=== PATIENT | male | born 1980 | race Caucasian/White ===

== ENCOUNTER 2017-04-05 16:21 | Observation (INO) | payer OTHER ==
[~2017-04-05] VITALS: Ht 180.3 cm; Wt 103.2 kg
[~2017-04-05 16:21] MED LIST: LORTA5 PO
[2017-04-05 16:28] VITALS: BP 145/91; PULSE 85; RESP 15; TEMP 98.5; O2SAT 98
[2017-04-05] MEDS ORDERED: CHOLESTEROL MED (16:34)
[2017-04-05] MEDS ORDERED: HTN MED (16:34)
[2017-04-05] MEDS ORDERED: MEDICAL MARIJUANNA (16:34)
[2017-04-05] MEDS ORDERED: ASPIRIN 81 MG CHEW TAB PO ONE (16:45)
[2017-04-05] MEDS ORDERED: SODIUM CHLORIDE 0.9% FLUSH 10 ML FLUSH IVF PRN (16:45)
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
[2017-04-05 16:56] VITALS: O2SAT 99
[2017-04-05 16:58] LABS: AUTOMATED NEUTROPHIL # 4.9 TH/MM3 (1.8-7.7); BASOPHIL % 0.5 % (0.0-2.0); EOSINOPHIL # 0.1 TH/MM3 (0-0.4); EOSINOPHIL % 1.5 % (0.0-4.0); HEMO FLAGS DIFF FINAL; LYMPH % 26.9 % (9.0-44.0); MEAN CORPUSCULAR HEMOGLOBIN 27.7 PG (27.0-34.0); MEAN CORPUSCULAR HGB CONC 32.9 % (32.0-36.0); MONO % 4.8 % (0.0-8.0); NEUT % 66.3 % (16.0-70.0); PLATELET COUNT 233 TH/MM3 (150-450); RED BLOOD COUNT 5.48 MIL/MM3 (4.50-5.90); RED CELL DISTRIBUTION WIDTH 12.5 % (11.6-17.2); WHITE BLOOD COUNT 7.4 TH/MM3 (4.0-11.0)
[2017-04-05] MEDS ORDERED: POTA10CA PO (17:01)
[2017-04-05] MEDS ORDERED: PRAV20TA2 PO (17:01)
[2017-04-05] MEDS ORDERED: HYDR25TA5 PO (17:01)
[2017-04-05 17:11] LABS: CHLORIDE 102 MEQ/L (98-107); POTASSIUM 3.2 MEQ/L (3.5-5.1); SODIUM (NA) 138 MEQ/L (136-145)
[2017-04-05 17:14] LABS: ANION GAP 9 MEQ/L (5-15); APTT (PATIENT) 33.1 SEC (24.3-30.1); BICARBONATE 26.7 MEQ/L (21.0-32.0); BLOOD UREA NITROGEN 12 MG/DL (7-18); MAGNESIUM 2.1 MG/DL (1.5-2.5); PROTHROMBIN TIME - PATIENT 10.7 SEC (9.8-11.6)
[2017-04-05 17:17] LABS: GLOMERULAR FILTRATION RATE 67 ML/MIN (>89)
--- NOTE | 2017-04-05 17:27 | RADRPT ---
EXAM DATE/TIME: 04/05/2017 16:58 [facility] COMPARISON: No previous studies available for comparison. INDICATIONS : Chest pain starting this morning MEDICAL HISTORY : None. SURGICAL HISTORY : None. ENCOUNTER: Initial ACUITY: 1 day PAIN SCORE: 8/10 LOCATION: Bilateral chest FINDINGS: A single view of the chest demonstrates the lungs to be symmetrically aerated without evidence of mas s, infiltrate or effusion. The cardiomediastinal contours are unremarkable. Osseous structures are intact. CONCLUSION: No acute cardiopulmonary process. Alex Sen MD on April 05, 2017 at 17:25 Board Certified Radiologist. This report was verified electronically.
[2017-04-05 17:33] LABS: CREATINE KINASE 121 U/L (39-308)
[2017-04-05 17:45] LABS: CKMB LESS THAN 0.5 NG/ML (0.5-3.6)
[2017-04-05] MEDS ORDERED: ACETAMINOPHEN 500 MG CPLT PO PRN (18:15)
[2017-04-05] MEDS ORDERED: SODIUM CHLORIDE 0.9% FLUSH 10 ML FLUSH IV FLUSH PRN (18:15)
[2017-04-05] MEDS ORDERED: NITROGLYCERIN 0.4 MG SL 25 TABS/BTL SL PRN (18:15)
[2017-04-05] MEDS ORDERED: ONDANSETRON HCL 4 MG/2 ML VIAL IV PUSH PRN (18:15)
--- NOTE | 2017-04-05 18:15 | HHI.HP ---
HPI Primary Care Physician [facility] Admission Diagnosis Chest pain, hyperlipidemia, hypertension. Diagnoses: Chief Complaint: Chest pain History of Present Illness 37 year old male with HTN and Fibromyalgia complaining of "months" of substernal CP worse with exertion and worse today. Pain usually happens after mowing the lawn, but today he walked up a flight of stairs and had severe 10/10 substernal nonradiating chest pressure "like lactic acid build up". He was not diaphoretic. He did not take any pain medications and notes the pain has been persistent since he came to the ER. I reviewed his EKG and there are Patient's nonspecific anterior lead ST changes without evidence of ischemia. Ptn Ekg reviewd by me ia negative for acute cardiopulmonary disease. He is recommended for the [facility] evaluation. Review of Systems Constitutional: DENIES: Diaphoretic episodes, Fatigue, Fever, Weight gain, Weight loss, Chills, Dizziness, Change in appetite, Night Sweats Endocrine: DENIES: Heat/cold intolerance, Polydipsia, Polyuria, Polyphagia Eyes: DENIES: Blurred vision, Diplopia, Eye inflammation, Eye pain, Vision loss , Photosensitivity, Double Vision Ears, nose, mouth, throat: DENIES: Tinnitus, Hearing loss, Vertigo, Nasal discharge, Oral lesions, Throat pain, Hoarseness, Ear Pain, Running Nose, Epistaxis, Sinus Pain, Toothache, Odynophagia Respiratory: DENIES: Apneas, Cough, Snoring, Wheezing, Hemoptysis, Sputum production, Shortness of breath Cardiovascular: COMPLAINS OF: Chest pain, Dyspnea on Exertion, DENIES: Palpitations, Syncope, PND, Lower Extremity Edema, Orthopnea, Claudication Gastrointestinal: DENIES: Abdominal pain, Black stools, Bloody stools, Constipation, Diarrhea, Nausea, Vomiting, Difficulty Swallowing, Anorexia Genitourinary: DENIES: Sexual dysfunction, Urinary frequency, Urinary incontinence, Urgency, Hematuria, Dysuria, Nocturia, Penile Discharge, Testicular Pain, Testicular Swelling Musculoskeletal: COMPLAINS OF: Joint pain, Muscle aches, Joint Swelling, Back pain Integumentary: DENIES: Abnormal pigmentation, Nail changes, Pruritus, Rash Hematologic/lymphatic: DENIES: Bruising, Lymphadenopathy Immunologic/allergic: COMPLAINS OF: Eczema, Urticaria Neurologic: COMPLAINS OF: Abnormal gait (walker at baseline), DENIES: Headache , Localized weakness, Paresthesias, Seizures, Speech Problems, Tremor, Poor Balance Psychiatric: DENIES: Anxiety, Confusion, Mood changes, Depression, Hallucinations, Agitation, Suicidal Ideation, Homicidal Ideation, Delusions Except as stated in HPI: all other systems reviewed are Neg Past Family Social History Past Medical History HTN Fibromyalgia DION Chronic pain Past Surgical History denies Reported Medications reviewed in the emr Allergies: Coded Allergies: No Known Allergies (Unverified , 01/11/14) Active Ordered Medications Reviewed in the EMR Family History Mom unknown, father CABG 72 y Social History no tobacco, , no etoh, no travel retired [employer] Physical Exam Vital Signs Vital Signs Date Time Temp Pulse Resp B/P (MAP) Pulse Ox O2 Delivery O2 Flow Rate FiO2 04/05/17 16:56 99 Room Air 04/05/17 16:56 99 Room Air 04/05/17 16:28 98.5 85 15 145/91 (109) 98 Physical Exam GENERAL: This is a well-nourished, well-developed patient, complaining of 4/10 substernal cp SKIN: No rashes, ecchymoses or lesions. Cool and dry. HEAD: Atraumatic. Normocephalic. No temporal or scalp tenderness. EYES: Pupils equal round and reactive. Extraocular motions intact. No scleral icterus. No injection or drainage. ENT: Nose without bleeding, purulent drainage or septal hematoma. Throat without erythema, tonsillar hypertrophy or exudate. Uvula midline. Airway patent. NECK: Trachea midline. No JVD or lymphadenopathy. Supple, nontender, no meningeal signs. CARDIOVASCULAR: Regular rate and rhythm without murmurs, gallops, or rubs. RESPIRATORY: Clear to auscultation. Breath sounds equal bilaterally. No wheezes , rales, or rhonchi. GASTROINTESTINAL: Abdomen soft, non-tender, nondistended. No hepato-splenomegaly , or palpable masses. No guarding. MUSCULOSKELETAL: Extremities without clubbing, cyanosis, or edema. No joint tenderness, effusion, or edema noted. No calf tenderness. Negative Homans sign bilaterally. NEUROLOGICAL: Awake and alert. Cranial nerves II through XII intact. Motor and sensory grossly within normal limits. Five out of 5 muscle strength in all muscle groups. Normal speech. Laboratory Laboratory Tests Test 04/05/17 16:49 White Blood Count 7.4 Red Blood Count 5.48 Hemoglobin 15.2 Hematocrit 46.0 Mean Corpuscular Volume 84.0 Mean Corpuscular Hemoglobin 27.7 Mean Corpuscular Hemoglobin Concent 32.9 Red Cell Distribution Width 12.5 Platelet Count 233 Mean Platelet Volume 9.3 Neutrophils (%) (Auto) 66.3 Lymphocytes (%) (Auto) 26.9 Monocytes (%) (Auto) 4.8 Eosinophils (%) (Auto) 1.5 Basophils (%) (Auto) 0.5 Neutrophils # (Auto) 4.9 Lymphocytes # (Auto) 2.0 Monocytes # (Auto) 0.4 Eosinophils # (Auto) 0.1 Basophils # (Auto) 0.0 CBC Comment DIFF FINAL Differential Comment Prothrombin Time 10.7 Prothromb Time International Ratio 1.0 Activated Partial Thromboplast Time 33.1 Blood Urea Nitrogen 12 Creatinine 1.20 Random Glucose 125 Calcium Level 9.0 Magnesium Level 2.1 Sodium Level 138 Potassium Level 3.2 Chloride Level 102 Carbon Dioxide Level 26.7 Anion Gap 9 Estimat Glomerular Filtration Rate 67 Total Creatine Kinase 121 Creatine Kinase MB LESS THAN 0.5 Troponin I LESS THAN 0.02 Result Diagram: 04/05/17 1649 04/05/17 1649 Imaging Last Impressions Chest X-Ray 04/05/17 1638 Signed Impressions: Service Date/Time: Wednesday, April 05, 2017 16:58 - CONCLUSION: No acute cardiopulmonary process. Alex Sen MD Assessment and Plan Problem List: (1) Chest pain ICD Code: R07.9 - Chest pain, unspecified Status: Acute Plan: Chest pain atypical but concerning given his history of HTn and Lipd disorder [facility] obsv with Nuc ST in am cotn tele, trend cardiac enzymes, symptom management (2) Fibromyalgia ICD Code: M79.7 - Fibromyalgia Plan: patient on Medical marijuana (3) Hypertension ICD Code: I10 - Essential (primary) hypertension Status: Acute Plan: COnt HCTZ (4) Sleep apnea ICD Code: G47.30 - Sleep apnea, unspecified Status: Acute Code Status full code Discussed Condition With Patient, Lakeshia Espinosa MD Apr 05, 2017 18:15
[2017-04-05 19:39] LABS: CREATINE KINASE 118 U/L (39-308)
[2017-04-05 19:51] LABS: CKMB 0.6 NG/ML (0.5-3.6)
[2017-04-05 20:00] VITALS: BP 145/104; PULSE 74; PULSE 76; RESP 20; TEMP 97.8; O2SAT 97
[2017-04-05] MEDS: FAMOTIDINE 20 MG TAB PO SCH (20:00)
[2017-04-05] MEDS: SODIUM CHLORIDE 0.9% FLUSH 10 ML FLUSH IV FLUSH SCH (20:02)
[2017-04-05 20:48] VITALS: O2SAT 99
[2017-04-05 21:52] LABS: CREATINE KINASE 109 U/L (39-308)
[2017-04-05 22:04] LABS: CKMB 0.6 NG/ML (0.5-3.6)
--- NOTE | 2017-04-05 23:20 | EKG ---
Date Performed: 04/05/2017 Time Performed: 21:21:36 PTAGE: 37 years EKG: Sinus rhythm MODERATE T-WAVE ABNORMALITY, CONSIDER ANTERIOR ISCHEMIA ABNORMAL ECG PREVIOUS TRACING : 04/05/2017 16.29 Compared to prior tracing no significant change DOCTOR: Alex Shaffer Interpretating Date/Time 04/05/2017 23:19:33
--- NOTE | 2017-04-05 23:33 | EKG ---
Date Performed: 04/05/2017 Time Performed: 16:29:47 PTAGE: 37 years EKG: Sinus rhythm NONSPECIFIC T-WAVE ABNORMALITY BORDERLINE ECG NO PREVIOUS TRACING DOCTOR: Alex Shaffer Interpretating Date/Time 04/05/2017 23:32:23
[2017-04-06] VITALS: BP 121/84; PULSE 66; RESP 20; TEMP 97.1; O2SAT 97
[2017-04-06 04:00] VITALS: BP 106/71; PULSE 69; RESP 20; TEMP 97.1; O2SAT 97
[2017-04-06 08:00] VITALS: BP 120/68; PULSE 76; RESP 16; TEMP 98.1; O2SAT 96; O2SAT 98
--- NOTE | 2017-04-06 08:29 | HHI.PR ---
Subjective Remarks Follow up for chest pain. Patient states he is feeling better. He denies any further chest pain or shortness of breath overnight. Objective Vitals Vital Signs Date Time Temp Pulse Resp B/P (MAP) Pulse Ox O2 Delivery O2 Flow Rate FiO2 04/06/17 08:00 98.1 76 16 120/68 (85) 96 04/06/17 04:00 97.1 69 20 106/71 (83) 97 04/06/17 00:00 97.1 66 20 121/84 (96) 97 04/05/17 20:48 99 Nasal Cannula 2.00 04/05/17 20:00 76 04/05/17 20:00 97.8 74 20 145/104 (118) 97 04/05/17 16:56 99 Room Air 04/05/17 16:56 99 Room Air 04/05/17 16:28 98.5 85 15 145/91 (109) 98 I/O 04/05/17 04/05/17 04/05/17 04/06/17 04/06/17 04/06/17 07:00 15:00 23:00 07:00 15:00 23:00 Intake Total 240 ml Balance 240 ml Intake Oral 240 ml # Voids 1 Result Diagram: 04/05/17 1649 04/05/17 1649 Objective Remarks GENERAL: Well-nourished, well-developed patient in no apparent distress. CARDIOVASCULAR: Regular rate and rhythm. RESPIRATORY: No accessory muscle use. Clear to auscultation. Breath sounds equal bilaterally. GASTROINTESTINAL: Abdomen soft, non-tender, nondistended. MUSCULOSKELETAL: No lower extremity edema bilaterally. NEUROLOGICAL: Awake and alert. Normal speech. PSYCHIATRIC: Appropriate mood and affect. Urinary Catheter: No Vascular Central Line Catheter: No A/P Problem List: (1) Chest pain ICD Code: R07.9 - Chest pain, unspecified Status: Acute (2) Fibromyalgia ICD Code: M79.7 - Fibromyalgia (3) Hypertension ICD Code: I10 - Essential (primary) hypertension Status: Acute (4) Sleep apnea ICD Code: G47.30 - Sleep apnea, unspecified Status: Acute Assessment and Plan Chest pain: Substernal chest pressure worse on exertion. H/o hyperlipidemia and HTN. -EKGs x 2 personally interpreted with nonspecific T wave inversion primarily in V3 through V5. -Troponin 3 less than 0.02. -Telemetry reviewed without significant events -325 mg daily aspirin -Nitro prn chest pain -Lexiscan ordered. Patient states he forgot and had crackers this morning. No caffeine in the last 12 hours. I informed patient his test will be delayed by 4 hours. Hypertension: BP wnl this morning. Continue HCTZ HLD: Continue Pravastatin. Lipid profile ordered. Fibromyalgia: Patient uses medical marijuana DVT prophylaxis: SCDs Update: Myocardial perfusion scan shows 20% redistribution in the mid anterolateral wall concerning for an area of ischemia. This is consistent with EKG changes. He additionally has fixed diminished perfusion to the apex. EF of 62%. I spoke with patient at approximately 1445 and explained results. He complains of current 2/10 pressure in the center of his chest, but denies any chest pain or shortness of breath when he has gotten up to ambulate to the bathroom. He has NO reproducible tenderness in this area. Nitroglycerin ointment ordered. I spoke with Dr. Borjas, on-call sales assistant entertainment and media, who would like the patient transferred over to the main [facility] as soon as possible for a heart catheterization today. He advises starting heparin. which has been ordered. Patient ate lunch and Dr. Borjas is aware. Made NPO at this time. Patient requested I speak with his Hellen Melendez at [phone] which I have done. Attending Statement The exam, history, and the medical decision-making described in the above note were completed with the assistance of the mid-level provider. I reviewed and agree with the findings presented. I attest that I had a [id number] encounter with the patient on the same day, and personally performed and documented my assessment and findings in the medical record. patient had a cath and was recommended for aspirin and metoprolol, Cath results in EMR. DC home activity as tolerated Diet heart healthy Medical Decision Making Impression and Plan Patient seen today in follow-up for atypical chest pain, overall chest pain appears resolved. Discharge plans pending stress test discussed with patient Jazmine Alaniz Apr 06, 2017 08:29 Lakeshia Cartagena MD Apr 06, 2017 13:03
[2017-04-06] MEDS ORDERED: PRAVASTATIN SOD 20 MG TAB PO SCH (09:00)
[2017-04-06] MEDS ORDERED: HYDROCHLOROTHIAZIDE 25 MG TAB PO SCH (09:00)
[2017-04-06] MEDS ORDERED: ASPIRIN 325 MG TAB PO SCH (09:00)
[2017-04-06] MEDS: SODIUM CHLORIDE 0.9% FLUSH 10 ML FLUSH IV FLUSH SCH (10:26)
[2017-04-06] MEDS: FAMOTIDINE 20 MG TAB PO SCH ×2 (10:27→18:49)
[2017-04-06 12:00] VITALS: BP 129/71; PULSE 84; RESP 16; TEMP 97.6; O2SAT 94
--- NOTE | 2017-04-06 14:04 | RADRPT ---
EXAM DATE/TIME: 04/06/2017 12:23 [facility] COMPARISON: No previous studies available for comparison. INDICATIONS : Substernal chest pain with dyspnea upon exertion. Abnormal EKG. DOSE: 35 mCi Tc99m Myoview at stress. 11 mCi Tc99m Myoview at rest. 0.4 mg Lexiscan STRESS SYMPTOMS: Dyspnea, tingling and chest pain. EJECTION FRACTION: 62% MEDICAL HISTORY : Hypercholesterolemia. Hypertension. SURGICAL HISTORY : Lumbar spine. ENCOUNTER: Initial ACUITY: 4 - 6 days PAIN SCALE: 7/10 LOCATION: Substernal chest TECHNIQUE: The patient underwent pharmacologic stress with infusion of prescribed dose. Continuous ECG tracing was monitored during stress. Gated SPECT imaging was performed after stress and conventional SPECT i maging was performed at rest. The examination was performed on a SPECT/CT scanner, both attenuation and non-corrected datasets were reviewed. FINDINGS: DISTRIBUTION: The maximum perfused segment at stress is in the inferior wall. PERFUSION STUDY: The pattern of perfusion at stress and shows approximately 20% redistribution in the mid anterolatera l wall. Fixed diminished perfusion to the apex. GATED STUDY: There is intact wall motion and thickening without hypokinetic or dyskinetic segments. CONCLUSION: 1. 20% redistribution in the mid anterolateral wall concerning for an area of ischemia. 2. Adequate wall motion throughout with an ejection fraction of 62% RISK CATEGORY: Intermediate (1-3% Annual Mortality Rate) Alex Sen MD on April 06, 2017 at 13:53 Board Certified Radiologist. This report was verified electronically.
[2017-04-06] MEDS ORDERED: NITROGLYCERIN 2% OINT 1 GM PACKET TOP ONE (15:00)
[2017-04-06] MEDS ORDERED: NITROGLYCERIN 2% OINT 1 GM PACKET TOP SCH ×2 (15:30→18:00)
[2017-04-06] MEDS ORDERED: HEPARIN-D5W 25,000 U/250 ML 250 ML IV PRN (15:30)
[2017-04-06] MEDS ORDERED: HEPARIN SODIUM - IV 10,000 UNITS/10 ML VIAL IV ONE (15:30)
[2017-04-06 15:42] LABS: HEMATOCRIT 46.3 % (39.0-51.0); MEAN CELL VOLUME 85.7 FL (80.0-100.0); MEAN CORPUSCULAR HEMOGLOBIN 28.4 PG (27.0-34.0); MEAN CORPUSCULAR HGB CONC 33.2 % (32.0-36.0); PLATELET COUNT 219 TH/MM3 (150-450); REVIEW FLAG FINAL; WHITE BLOOD COUNT 7.6 TH/MM3 (4.0-11.0)
[2017-04-06] MEDS ORDERED: MIDAZOLAM HCL 2 MG/2 ML VIAL ONE (16:28)
[2017-04-06] MEDS ORDERED: POTASSIUM CHLOR 20 MEQ PREMIX 100 ML ONE (16:28)
[2017-04-06] MEDS ORDERED: HEPARIN SODIUM - IV 10,000 UNITS/10 ML VIAL ONE (16:29)
[2017-04-06] MEDS ORDERED: NITROGLYCERIN INJ 5 ML ONE (16:29)
[2017-04-06] MEDS ORDERED: VERAPAMIL HCL 5 MG/2 ML VIAL ONE (16:29)
[2017-04-06] MEDS ORDERED: HEPARIN-NS/PF INJ 500 ML ONE (16:29)
[2017-04-06] MEDS ORDERED: IOHEXOL 350 MG/ML 100 ML BTL (for Cath Lab) OTHER ONE (16:30)
[2017-04-06 16:58] LABS: HDL CHOLESTEROL 68.8 MG/DL (40.0-60.0)
[2017-04-06] MEDS ORDERED: METO25TA3 PO (17:11)
--- NOTE | 2017-04-06 17:13 | CATHPROC ---
[employer] HIS Report Study Information Study Number Admission Scheduled Start Study Start [id number] Apr 05 2017 5:38PM 04/06/2017 Apr 06 2017 4:15PM Reading Service Cardiac Catheterization Admit Source Facility Department Transfer in from another acute care facility [facility] [address] - Division Plant Engineer Physician and Clinical Staff Initial Haresh Coy Service Superintendentiraida Paulino RN, Leslie Jean RN Service SuperintendentLaura Ortiz RN Other cathlab, cathlab Recorder Beth Chu,MAINFRAME SYSTEMS PROGRAMMER TECH2 Scrub HostJerad patton,RT(R) Procedures Performed Procedure Location (Site) Vessel Name Coronary Angiograms LCA Left Coronary Coronary Angiograms RCA Right Coronary L Heart Cath Wire insertion Radial (right) Radial Art. Equipment Time Associate Brand Manager Description Size Mfg Part Number Used/Scraped TRANSDUCER, TRUWAVE [id number] 16:37 HENDRICKSON CHAVEZ * Used W/STOCKCOCK *[id number] *[id number] *[id number] *[id number] 16:37 [employer] PACK, CCL CUSTOM * Used *[id number] 16:37 [employer] SUPPORT, ARTERIAL ADULT 25817 *[id number] Used [id number] 16:37 [employer] PACER PEN, SKIN DUAL W/ RULER * Used *[id number] BAND, RADIAL COMPRESSION TR [id number] 17:04 [employer] 24CM Used SHORT 24 *[id number] BAND, RADIAL COMPRESSION TR [id number] 17:05 [employer] 24CM Used SHORT 24 *[id number] SHEATH, FR6 RADIAL PRELUDE 16:37 [employer]Rise FR 6 [id number] Used EASE 11CM [id number] 16:37 [employer] WIRE, EXCHANGE 260CM 3MMJ 260CM Used *[id number] 16:37 [employer] OMNIPAQUE, 350 MG, 150ML 150ML [id number] Used [id number] 16:37 [employer] BLANKET,WARM AIR CCL * Used *[id number] History: Allergies Allergy Reaction No Known Allergies History: Risk Factors Family History of Hypertension Dyslipidemia Previous NH Previous Heart Failure Premature CAD Yes Yes Yes No No Prior Valve Prior PCI Prior CABG Surgery No No No Cerebrovascular Peripheral Artery Chronic Lung On Dialysis Diabetes Disease Disease Disease No No No No No History: Stress Tests Stress or Imaging Studies Performed Yes Standard Exercise Stress Test No Stress Echo No Stress Test SPECT No Stress Test CMR Stress Test CMR Result Stress Test CMR Ischemia Risk/Extent Yes Positive High Cardiac CTA Coronary Calcium Score No No History: Other Disease Selection Items HTN History: Other Current Smoker No Labs Hgb (g/dl) Hct (%) WBC (l/cumm) Platelets (thousands) 11.60-17.00 35.00-51.00 4.00-11.00 150.00-450.00 15.2 46 7.4 233 Glucose (mg/dl) BUN (mg/dl) Creatinine (mg/dl) BUN:Creatinine (1:x) 74.00-106.00 7.00-18.00 0.50-1.30 10.00-20.00 125 12 1.2 10 Na (meq/l) K (meq/l) 136.00-145.00 3.50-5.10 138 3.2 INR (PTT:PT) 0.90-1.10 1 Troponin I (ng/ml) CPK (u/l) CPK-MB (ng/ML) 0.02-0.05 26.00-308.00 0.50-3.60 0.02 109 0.6 Medication Medication Total Dose (Bolus/Oral) Medication Total Dosage/Unit 1% XYLOCAINE 10 mL FENTANYL 50 mcg OXYGEN 2 l/min VERSED 2 mg Medications (Bolus/Oral) Medication Time Given Dosage/Unit Administered By Reason OXYGEN 04/06/2017 4:39:26 PM 2 l/min Leslie Diallo 2 l/min OXYGEN given in lab by Leslie Diallo, ALIX via Nasal. Ordered by Haresh Borjas. VERSED 04/06/2017 4:48:16 PM 2 mg Laura Escalante 2 mg VERSED given in lab by Laura Escalante, RN in Right Antecubital via Peripheral IV. Ordered by Haresh Martinez. FENTANYL 04/06/2017 4:49:50 PM 50 mcg Laura Escalante 50 mcg FENTANYL given in lab by Laura Escalante, RN in Right Antecubital via Peripheral IV. Ordered b Haresh Stallings. 1% XYLOCAINE 04/06/2017 4:51:29 PM 10 mL Haresh Borjas 10 mL 1% XYLOCAINE given in lab by Haresh Borjas in Right Radial via Subcutaneous. Ordered by Haresh Borjas. Medication (Drip) Medication Time Given Dosage/Unit Concentration/Unit Diluent (ml) Solution IV Solutions 04/06/2017 4:35:43 PM 0 mL (IV) 500 NaCl .9 IV Solutions given in lab by Leslie Diallo RN in Right Antecubital via Peripheral IV. Pump/Drip Fl ow = 20 ml/hr using NaCl .9. Ordered by Haresh Borjas. POTASSIUM DRIP 04/06/2017 4:31:44 PM 50 mL/hr 10 mL 100 NaCl .9 50 mL/hr POTASSIUM DRIP given in lab by Leslie Diallo, ALXI in Right Antecubital via Peripheral IV. P ump/Drip Flow = 500 ml/hr using NaCl .9 with a concentration of 10 mL in 100 ml. Ordered by Haresh Borjas. Initial Case Assessment Cardiovascular HR NIBP 75 149/83 Edema Present Skin color Skin None Normal Warm Dry Circulatory - Right Pulses Dorsalis Pedis Femoral Radial 3 3 3 Scale (0,1,2,3,4,d) Circulatory - Left Pulses Dorsalis Pedis Femoral Radial 3 3 Scale (0,1,2,3,4,d) Neurological State Oriented to time-place- Alert Moves all extremities person Respiration - General Respiration Rate SpO2 (%) O2 (lpm) (B/min) 14 98 2 Final Case Assessment Cardiovascular HR NIBP 74 133/77 Edema Present Skin color Skin None Normal Warm Dry Circulatory - Right Pulses Dorsalis Pedis Femoral Radial 3 3 3 Scale (0,1,2,3,4,d) Circulatory - Left Pulses Dorsalis Pedis Femoral Radial 3 3 Scale (0,1,2,3,4,d) Neurological State Oriented to time-place- Alert Moves all extremities person Respiration - General Respiration Rate SpO2 (%) O2 (lpm) (B/min) 14 100 2 Chronological Log Time Study Chronological Log 16:28:57 Patient arrived via Bed. 16:28:58 Patient Name, D.O.B, / Armband Verified By R.N. 16:28:59 Consent signed by the physician and the patient and verified by the Division Plant Engineer staff. 16:29:00 Pre-op and post- op instructions given; patient acknowledges understanding of instructions. 16:29:03 Patient has been NPO for More than 6Hrs. 16:29:03 NO Skin Breakdown- 50 mL/hr POTASSIUM DRIP given in lab by Leslie Diallo, RN in Right Antecubital via Peripheral IV. Pump/Drip Flow 16:31:44 = 500 ml/hr using NaCl .9 with a concentration of 10 mL in 100 ml. Ordered by Haresh Borjas. 16:35:35 A # 20 IV was noted in the Antecubital (right). Grade = 0 Vitals capture started with the following parameters, Patient=Adult, Interval=5 min, Initial Pr gsmmvs=453 mmHg, 16:35:39 Deflation Rate=5 mmHg, Cuff placed on Left Ankle IV Solutions given in lab by Leslie Diallo, RN in Right Antecubital via Peripheral IV. Pump/D rip Flow = 20 ml/hr 16:35:43 using NaCl .9. Ordered by Haresh Borjas. 16:36:22 Vitals capture stopped. Vitals capture started with the following parameters, Patient=Adult, Interval=5 min, Initial Pr pojacv=604 mmHg, 16:38:41 Deflation Rate=5 mmHg, Cuff placed on Left Ankle 16:38:49 History and physical on the chart or being dictated. 16:39:26 2 l/min OXYGEN given in lab by Leslie Diallo, RN via Nasal. Ordered by Haresh Borjas. 16:39:56 HR=75 bpm, NMKM=914/83 mmhg, SpO2=98.0 %, Resp=14 B/min, Pain=0, Harsha=10, Disla=2 Assessment: Initial Case, HR=75 BPM, XQGM=729/83 mmhg, Edema=None, Color=Normal, Skin = Warm, D ry Right Pulses: Colton Ped=3, Femoral=3, Radial=3 16:39:58 Left Pulses: Colton Ped=3, Femoral=3 Neurological: State=Alert, Ox3, GREENE Respiration: Resp=14 B/min, SpO2=98 %, O2=2 lpm 16:44:22 HR=71 bpm, OILF=330/89 mmhg, SpO2=97.0 %, Resp=18 B/min, Pain=0, Harsha=10, Disla=2 16:46:33 Right groin and right radial prepped with 2% chlorhexidine, and with a 3 min. waiting time. 16:47:04 Pressure channel 1 zeroed. 16:47:14 Reference ECG taken 16:48:16 2 mg VERSED given in lab by Laura Escalante, RN in Right Antecubital via Peripheral IV. Ord ered by Haresh Borjas. 16:49:21 HR=82 bpm, LCLL=717/83 mmhg, SpO2=93.0 %, Resp=9 B/min, Pain=0, Harsha=10, Disla=2 Time Out. Correct patient, correct procedure,correct physician, power injector not loaded with contrast with surgical 16:49:42 team present. Time Out Concurred by , individual staff in procedure 50 mcg FENTANYL given in lab by Laura Escalante, RN in Right Antecubital via Peripheral IV. Ord ered by [place] 16:49:50 Haresh. 16:50:15 Case Start 16:51:29 10 mL 1% XYLOCAINE given in lab by Haresh Borjas in Right Radial via Subcutaneous. Ordered by Haresh Borjas. 16:52:27 Access site was Radial Artery. A SHEATH, FR6 RADIAL PRELUDE EASE 11CM FR 6 was advanced into the Radial (right) using the She fied Seldinger 16:52:43 technique. A JR 5.0 INFINITI CATHETER FR 6 was advanced over a wire. OMNIPAQUE, 350 MG, 150ML 150ML was us ed for 16:53:51 injections. 16:54:22 HR=84 bpm, FATL=496/73 mmhg, SpO2=91.0 %, Resp=17 B/min, Pain=0, Harsha=10, Disla=2 Recorded Pressure: LV, HR=82, Condition=Condition 1 16:54:33 (Left Ventricle) LV 117/2/8 Recorded Pressure: LV, Ao, HR=82, Condition=Condition 1 16:54:44 (Left Ventricle) LV 115/4/9, (Aorta) Ao 114/86/99 Recorded Pressure: Ao, HR=77, Condition=Condition 1 16:55:04 (Aorta) Ao 117/85/99 16:55:16 The RCA was injected and visualized at various angles. OMNIPAQUE, 350 MG, 150ML 150ML used . After removing the current catheter a JL 4.5 INFINITI CATHETER FR 6 was advanced over a WIRE, E XCHANGE 260CM 16:55:38 3MMJ 260CM. After removing the current catheter a AL 3 INFINITI CATHETER FR 6 was advanced over a WIRE, EXC HANGE 260CM 16:59:09 3MMJ 260CM. 16:59:21 HR=77 bpm, ZNVJ=941/74 mmhg, SpO2=93.0 %, Resp=15 B/min, Pain=0, Harsha=10, Disla=2 17:00:43 The LCA was injected and visualized at various angles. OMNIPAQUE, 350 MG, 150ML 150ML used . 17:03:10 A WIRE, EXCHANGE 260CM 3MMJ 260CM was inserted via Radial (right). 17:03:23 Catheter was removed 17:03:38 Case End 17:04:04 Catheter(s) removed without difficulty 17:04:24 HR=74 bpm, ILTJ=916/74 mmhg, SpO2=94.0 %, Resp=17 B/min, Pain=0, Harsha=10, Disla=2 17:04:35 Cine recording checked. Radial Compression Device Used. 10 mLs of air placed in BAND, RADIAL COMPRESSION TR SHORT 24 24 CM. Affected 17:08:07 hand 97 % O2 saturation. 17:09:19 HR=74 bpm, BHDL=144/77 mmhg, RsR9=949.0 %, Resp=15 B/min, Pain=0, Harsha=10, Disla=2 17:10:03 Vitals capture stopped. Assessment: Final Case, HR=74 BPM, KJWQ=895/77 mmhg, Edema=None, Color=Normal, Skin = Warm, Dr y Right Pulses: Colton Ped=3, Femoral=3, Radial=3 17:10:08 Left Pulses: Colton Ped=3, Femoral=3 Neurological: State=Alert, Ox3, GREENE Respiration: Resp=14 B/min, MdJ3=894 %, O2=2 lpm 17:11:10 Contrast Scanned 17:11:14 A Left Heart Cath was performed. 17:11:22 Patient moved to [facility] End Study - Contrast Media Used In Study Contrast Total Opened (mL) Total Used (mL) Total Wasted (mL) Omnipaque 60 60 0 End Study - Maximum Contrast Load Max Contrast Load (mL) 429.9 End Study - Radiation Exposure Fluoro Time (minutes) 4.5 End Study - Patient Disposition Complications Transferred To Telemetry Bed
[2017-04-06] MEDS ORDERED: MISC INFORMATION XX ONE (17:15)
[2017-04-06] MEDS ORDERED: BACITRACIN OINT 0.9 GM PKT TOP ONE (17:15)
[2017-04-06] MEDS ORDERED: oxyCODONE/ACETAMINOPHEN 5 MG/325 MG TAB PO PRN ×2 (17:15)
[2017-04-06] MEDS ORDERED: POTASSIUM CHLORIDE 10 MEQ CONTROLLED RELEASE TAB PO ONE (17:15)
[2017-04-06 17:16] LABS: INTERNATIONAL NORMALIZED RATIO 1.1 RATIO; PROTHROMBIN TIME - PATIENT 11.9 SEC (9.8-11.6)
[2017-04-06 17:20] LABS: APTT (PATIENT) 114.1 SEC (24.3-30.1)
[2017-04-06] MEDS ORDERED: ASPI81TA81 PO (17:23)
[2017-04-06] MEDS ORDERED: REGADENOSON INJ 0.4 MG/5 ML SYR IV ONE (17:39)
--- NOTE | 2017-04-06 17:53 | MB ---
cc: ANGEL MEDINA MD DATE OF CONSULTATION 04/06/17 REASON FOR CONSULTATION Unstable angina HISTORY OF PRESENT ILLNESS This is a 37-year-old gentleman with history of hypertension, history of fibromyalgia who has had several months of some substernal chest pain. His chest pain is primarily exertional, when he is mowing the lawn or going up a flight of stairs. He states it is 10/10 substernal chest pressure sort of radiating towards the left side. He has had some mild shortness of breath. EKG shows some nonspecific changes. We ordered for a stress test. During the stress test, he developed chest pain symptoms and the scan showed a moderate size anterolateral ischemic defect putting the stressed category of high-risk stress test. Given his suggestive symptoms condition to abnormal stress test, he was sent over for cardiac catheterization despite his young age. PAST MEDICAL HISTORY 1. Hypertension 2. Obstructive sleep apnea, 3. Chronic pain. ALLERGIES NO KNOWN DRUG ALLERGIES. FAMILY HISTORY No family history of early coronary disease, sudden cardiac . SOCIAL HISTORY Denies any alcohol, tobacco or drug use. MEDICATIONS Reported medications, see medical reconciliation. REVIEW OF SYSTEMS A 12-point review of systems was performed, negative unless otherwise noted in history of present illness. PHYSICAL EXAMINATION VITAL SIGNS: Temperature 97, pulse 84, blood pressure 129/79 mmHg. GENERAL: Alert and oriented x3 in no acute distress. HEENT: Pupils reactive to light and accommodation. Extraocular movements are intact. No elevation in jugular venous distension. No thyromegaly, no lymphadenopathy. No carotid bruits. LUNGS: Clear to auscultation bilaterally. CARDIOVASCULAR: Regular rate and rhythm without murmurs, rubs, or gallops. ABDOMEN: Nontender, nondistended. Good bowel sounds. No hepatosplenomegaly. EXTREMITIES: No cyanosis, clubbing or edema. Good peripheral pulses. NEUROLOGIC: Cranial nerves Intact. Motor sensory grossly intact. LABORATORY DATA WBC 7.6, hemoglobin 15.4, platelet count 219, INR is one. Sodium 138, potassium 3.2, BUN 12, creatinine is 1.20, troponin is negative. ASSESSMENT 1. Unstable angina. 2. Hypertension PLAN Given the suggestive symptoms, cardiovascular risk factors and abnormal stress test, we will proceed with cardiac catheterization. Risks, benefits and alternatives discussed with the patient. MD MARK Alaniz /4:43 PM /5:36 PM [facility] SYSTEM[facility]
--- NOTE | 2017-04-06 21:13 | MA ---
cc: HARESH MEDINA MD DATE OF CARDIAC CATHETERIZATION 04/06/2017 INDICATION Unstable angina. PROCEDURE PERFORMED 1. Fluoroscopy with interpretation. 2. Coronary angiography. 3. Left heart catheterization. METHOD Risks, benefits, alternatives discussed with the patient. The patient understood and consented to procedure. The patient brought to the catheterization lab, placed on catheterization table. Right wrist was prepped and draped in sterile fashion. Right wrist was anesthetized with 2% lidocaine. Right radial artery was cannulated and a 6-Togolese 7 cm sheath was placed without difficulty. LEFT HEART CATHETERIZATION 6-Togolese JR-5 catheter advanced across the aortic valve without difficulty. Intraoperative hemodynamics measured at 120/10 mmHg. No aortic stenosis by transaortic valve or pullback gradient. CORONARY ANGIOGRAPHY 1. Left main is a large caliber size vessel, angiographically normal. 2. Left anterior descending coronary is angiographically normal. 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 3. Left circumflex gives rise to a large obtuse marginal branch which is angiographically normal. 4. Right coronary is a dominant vessel giving rise to a posterior descending coronary. Right coronary is angiographically normal. CONCLUSION 1. 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 2. Normal left-sided filling pressures. PLAN The patient will be monitored closely for any post procedural complications. Will add metoprolol. Symptoms may not be cardiac. In theory, myocardial bridge could be causing some intermittent chest pain and hopefully the beta-tayler will help to alleviate this. The patient can follow up with a primary care doc. Haresh Medina MD SM/EO /5:13 PM /8:54 PM
[2017-04-07] MEDS ORDERED: ASPIRIN 81 MG CHEW TAB PO SCH (09:00)
--- NOTE | 2017-04-07 14:28 | TR ---
Date Performed: 04/06/2017 Time Performed: 12:49:21 DOCTOR: Kaushal Gould DRUG LIST: CLINICAL HISTORY: REASON FOR TEST: Chest pain REASON FOR ENDING: OBSERVATION: CONCLUSION: Lexiscan stress test was performed under standard four minute protocol. Radionuclid e was injected one minute prior to ending the test. No electrocardiographic abormalities were present to suggest ischemia. Nuclear imaging and interpretation are pending. COMMENTS:
== END 2017-04-06 17:21 | disposition home or self-care (01) ==
LOC: PHED 16:21 → PHEDA 17:38 → PH5A 18:50 → UNDODISOB 04-06 17:21 → HDIC 04-06 17:44
PROVIDERS: ADMIT Hospitalist; ATTEND Hospitalist
DX: R07.89 Other chest pain (principal); R94.31 Abnormal electrocardiogram [ECG] [EKG]; Q24.5 Malformation of coronary vessels; I10 Essential (primary) hypertension; E78.5 Hyperlipidemia, unspecified; M54.9 Dorsalgia, unspecified; G89.29 Other chronic pain; M79.7 Fibromyalgia; G47.33 Obstructive sleep apnea (adult) (pediatric); E78.00 Pure hypercholesterolemia, unspecified; Z82.49 Family history of ischemic heart disease and other diseases of the circulatory system
CPT/HCPCS: 71010; 78452; 80048; 80061; 82550; 82552; 83735; 84484; 85025; 85027; 85610; 85730; 93005; 93017; 93454; 96374; 99285; A9502; C1769; C1893; G0378; J1644; J2250; J2785; J3010; J3480; Q9967